=== PATIENT | female | born 1960 | race Caucasian/White ===

== ENCOUNTER 2019-08-25 16:51 | Emergency (ER) | payer SELFPAY ==
--- NOTE | 2019-08-25 19:22 | RAD ---
EXAM: Chest PA and lateral: HISTORY: Cough and congestion, x3 days COMPARISON: None FINDINGS: Heart: Normal cardiac silhouette Aorta: Atherosclerosis Pulmonary vessels: Normal Costophrenic angles: Costophrenic angles are clear. Lungs: Hyperinflation. Chronic parenchymal changes are suspected. No mass or consolidation. Bilateral nipple shadows are noted. Pneumothorax: No pneumothorax Osseous structures: No osseous abnormalities IMPRESSION: Hyperinflation with presumed chronic parenchymal changes.
== END 2019-08-25 20:24 | disposition home or self-care (01) ==
LOC: ERS 16:51
DX: J06.9 Acute upper respiratory infection, unspecified (principal)
CPT/HCPCS: 71046; 87804

== ENCOUNTER 2020-07-04 19:29 | Emergency (ER) | payer SELFPAY | END 2020-07-04 20:16 | disposition home or self-care (01) | LOC: ERS 19:29 | DX: R05 Cough (principal) | CPT/HCPCS: 99283 ==

== ENCOUNTER 2020-08-06 00:31 | Inpatient (IN) | payer BC, SELFPAY ==
--- NOTE | 2020-08-06 04:08 | PDOC.HHP ---
Hospitalist HPI - History of Present Illness History of Present Illness: ADMISSION DATE: 08/06/2020 TIME OF ASSESSMENT: 4:15 AM PRIMARY CARE PHYSICIAN: Rohit, city call CHIEF COMPLAINT: Shortness of breath, cough HPI: Patient is a 59-year-old female with no significant past medical history. She states she has been sick on and off since [facility] and has had to miss the last week of work at the [employer]. She has had a persistent cough that has consistently gotten worse over the past 48 hours along with increasing shortness of breath. No medications have been taken at home. On initial evaluation at the ER she was 70% on room air and tachypneic. Patient endorses fatigue, rhinorrhea, sore throat, headache. Denies chest pain or GI/ symptoms. Patient was a daily smoker but quit at [facility]. ED COURSE: Vital Signs: Blood pressure 114/66, pulse 110, respiratory rate 20, temp 98.9, no pain, 100% on 1 L Today in the ER they completed a chest x-ray, chest CT, EKG, lab work. She was administered normal saline, Lovenox 40 mg, azithromycin 500 mg IV, ceftriaxone 2 g IV, dexamethasone 10 mg IV. PAST MEDICAL HISTORY: No past medical history PAST SURGICAL HISTORY: No surgical history SOCIAL HISTORY: Patient currently lives at home with family. 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 She is a former tobacco user, she quit a month ago. She drinks socially once a month. She denies drug use FAMILY HISTORY: None ALLERGIES: No known drug allergies CURRENT MEDICATIONS: No home medications Hospitalist ROS - Review of Systems Constitutional: reports: weakness ENT: reports: nose congestion Respiratory: reports: cough, shortness of breath, SOB with excertion All other systems reviewed; all pertinent +/- noted in HPI/Subj - Exam General Appearance: ill appearing Eye: PERRL ENT: normocephalic atraumatic Heart: RRR, no murmur, no gallops, no rubs Respiratory: rhonchi Gastrointestinal: soft, non-tender, non-distended, normal bowel sounds, no palpable masses Extremities: no edema Neurological: no focal deficits Psychiatric: A&O x 3 Hospitalist Results - Labs Lab results: Laboratory Tests 08/05/20 08/05/20 08/05/20 15:44 15:44 15:44 WBC 6.4 RBC 4.87 Hgb 13.3 Hct 43.5 D-Dimer Sodium 138 Potassium 4.8 Chloride 97 L Carbon Dioxide 35 H Anion Gap 11 BUN 10 Creatinine 0.58 L Estimated GFR (MDRD) Greater than 90 Glucose 141 H Lactic Acid Creatine Kinase 40 Troponin I C-Reactive Protein 0.77 H B-Natriuretic Peptide Influenza A RNA INAAT Influenza B RNA INAAT SARS-CoV-2 Rap RNA(RT-PCR) 08/05/20 08/05/20 08/05/20 15:44 15:44 15:44 WBC RBC Hgb Hct D-Dimer Sodium Potassium Chloride Carbon Dioxide Anion Gap BUN Creatinine Estimated GFR (MDRD) Glucose Lactic Acid 2.0 Creatine Kinase Troponin I Less than 0.010 C-Reactive Protein B-Natriuretic Peptide 340.1 H Influenza A RNA INAAT Influenza B RNA INAAT SARS-CoV-2 Rap RNA(RT-PCR) 08/05/20 08/05/20 15:44 16:20 WBC RBC Hgb Hct D-Dimer 1.40 H Sodium Potassium Chloride Carbon Dioxide Anion Gap BUN Creatinine Estimated GFR (MDRD) Glucose Lactic Acid Creatine Kinase Troponin I C-Reactive Protein B-Natriuretic Peptide Influenza A RNA INAAT Not Detected Influenza B RNA INAAT Not Detected SARS-CoV-2 Rap RNA(RT-PCR) Not Detected - EKG Interpretation EKG: Sinus tachycardia with inverted T waves 112 bpm - Radiology Interpretation CT scan - chest Status: report reviewed by me Additional Comment: Impression: No evidence of pulmonary masses Very small bilateral pleural effusions Evidence of interstitial lung disease with nonspecific subpleural nodules. Increased density of the mediastinal fat may be related to fibrosis as well. No mass evident. Chest x-ray Status: report reviewed by me Additional Comment: Impression: 1. Mild increased linear densities at each lung base with slight patchy density left lung base. Findings could be related either mild asymmetric pulmonary edema or infectious process. 2. Mild cardiomegaly. Hospitalist H&P A/P - Plan Plan: Hypoxia with acute respiratory failure Continue oxygen and attempt to wean off when able Influenza and Covid swab negative COPD exacerbation versus Pneumonia Continue azithromycin and ceftriaxone Continue steroid at this time Awaiting procalcitonin level Scheduled duo nebs Follow labs in a.m. History of tobacco abuse Patient quit smoking last month Nicotine patch available if needed VTE prophylaxis in place with SCDs CODE STATUS: Full Surrogate decision-maker is her mother
[2020-08-06] MEDS ORDERED: Acetaminophen 325 MG TAB PO PRN (04:12)
[2020-08-06] MEDS ORDERED: guaiFENesin 100 MG/5 ML UDCUP PO PRN (04:46)
[2020-08-06] MEDS: Nicotine 14 MG PATCH TD SCH (06:09)
[2020-08-06 06:58] LABS: #Lymphocytes 1.2 thou/uL (1.20-3.40); #Monocytes 0.6 thou/uL (0.11-0.59); %Basophils 0.6 % (0.0-1.0); %Eosinophils 0.2 % (0.0-10.0); %Lymphocytes 17.8 % (21.0-51.0); %Monocytes 8.6 % (0.0-10.0); %Neutrophils 72.8 % (42.0-75.0); Hemoglobin 13.6 g/dL (12.0-16.0); Mean Corpuscular HGB CONC 30.3 g/dL (32.0-36.0); Mean Corpuscular Volume 92.5 fL (78.0-98.0); Mean Platelet Volume 6.9 fL (7.4-10.4); Platelet Count 286 thou/uL (130-400); RBC Distribution Width 14.6 % (11.5-14.5); Red Blood Cell (RBC) Count 4.85 mill/uL (4.20-5.40); White Blood Cell (WBC) Count 6.9 thou/uL (4.8-10.8)
[2020-08-06 07:14] LABS: Anion Gap 12 mmol/L (10-20); BUN (Urea Nitrogen) 11 mg/dL (9.8-20.1); Calc. Creatinine Clearance 68 mL/min (70-130); Calcium 7.9 mg/dL (7.8-10.44); Carbon Dioxide 28 mmol/L (22-29); Chloride 107 mmol/L (98-107); Glucose 161 mg/dL (70-105); Potassium 4.9 mmol/L (3.5-5.1); Sodium 142 mmol/L (136-145)
[2020-08-06] MEDS: predniSONE 20 MG TAB PO SCH (08:18)
[2020-08-06] MEDS: Diabetic Tussin 200 MG/10 ML UDCUP PO PRN (08:18)
[2020-08-06] MEDS ORDERED: cefTRIAXone\\ROCEPHIN 1 GM in Sodium Chloride 0.9% 100 ML IVPB SCH (16:00)
[2020-08-06] MEDS ORDERED: Azithromycin 500 MG in Sodium Chloride 0.9% 250 ML 250 ML IVPB SCH (16:00)
--- NOTE | 2020-08-06 18:42 | PDOC.HOSPP ---
- Subjective Encounter Date: 08/06/20 Subjective: Feels better overall. Breathing more comfortably on the oxygen. Says she was never a significant smoker. Never smoked more than about 3 cigarettes/day. Has not smoked in several months. She does report about a 20 pound weight loss over the past year. - Objective Vital Signs & Weight: Vital Signs (12 hours) Temp Pulse Resp BP Pulse Ox 08/06/20 15:08 98.6 F 110 H 16 102/58 L 95 08/06/20 14:13 107 H 18 08/06/20 11:15 98.6 F 107 H 16 103/59 L 95 08/06/20 08:18 98.4 F 109 H 16 100/56 L 96 08/06/20 07:50 104 H 28 H Weight Admit Weight 95 lb 7 oz Weight 95 lb 7 oz I&O: 08/05/20 08/06/20 08/07/20 06:59 06:59 06:59 Intake Total 1310 Balance 1310 Result Diagrams: 08/06/20 06:46 08/06/20 06:46 Hospitalist ROS - Medication Medications: Active Medications Generic Name Dose Route Start Last Admin Trade Name Freq PRN Reason Stop Dose Admin Albuterol/Ipratropium 3 ml 08/06/20 07:00 08/06/20 14:13 Ipratropium/Albuterol Sulfate 3 Ml Neb NEB 3 ml [id number] JOSELITO Administration Guaifenesin 200 mg 08/06/20 06:38 08/06/20 08:18 Diabetic Tussin 200 Mg/10 Ml Udcup PO 200 mg Q4H PRN Administration Cough Ceftriaxone Sodium 1 gm/ 100 mls @ 200 mls/hr 08/06/20 16:00 08/06/20 15:08 Sodium Chloride IVPB 100 mls Q24HR JOSELITO Administration Azithromycin 500 mg/ Sodium 250 mls @ 250 mls/hr 08/06/20 16:00 08/06/20 15:08 Chloride IVPB 250 mls Q24HR JOSELITO Administration Nicotine 14 mg 08/06/20 04:15 08/06/20 06:09 Nicotine 14 Mg Patch TD Not Given Q24HR JOSELITO Prednisone 40 mg 08/06/20 09:00 08/06/20 08:18 Prednisone 20 Mg Tab PO 40 mg DAILY JOSELITO Administration - Exam General Appearance: NAD, awake alert General - other findings: Very thin. Heart: RRR, no murmur, no gallops, no rubs, normal peripheral pulses Respiratory: rales (Very minimal at the bases.) Respiratory - other findings: Slightly diminished on the left. Gastrointestinal: soft, non-tender, non-distended, normal bowel sounds, no palpable masses, no hepatomegaly, no splenomegaly, no bruit Extremities: no cyanosis, no clubbing, no edema Skin: normal turgor Neurological: no focal deficits Musculoskeletal: normal tone, normal strength, diffuse muscle atrophy (Mild) Psychiatric: normal affect, normal behavior, A&O x 3 Hosp A/P (1) Acute respiratory failure with hypoxia Code(s): J96.01 - ACUTE RESPIRATORY FAILURE WITH HYPOXIA Status: Acute (2) Pulmonary hypertension Code(s): I27.20 - PULMONARY HYPERTENSION, UNSPECIFIED Status: Acute - Plan This patient is a 59-year-old female who has been experiencing progressive shortness of breath for 5 to 6 weeks. She ultimately got to the point where she could no longer function at work and presented to the hospital. She had a CTA of the chest which showed some interstitial prominence of the lungs. It also appears to show a small left pleural effusion. There is no evidence of infiltrate. No evidence of PE. There was some concern for mediastinal fibrosis. Echocardiogram was obtained which reveals evidence of pulmonary hypertension. There are elevated pulmonary artery pressures as well as enlarged right ventricle. EF is 65 to 70%. Patient reports that she has never been a significant smoker. Concerning for the possibility of interstitial lung disease. Will discontinue antibiotics. Continue steroids and nebulizers. Given her tachycardia will change it to as needed. Consult pulmonology.
[2020-08-07] MEDS: Nicotine 14 MG PATCH TD SCH (01:59)
[2020-08-07 04:32] LABS: Anion Gap 10 mmol/L (10-20); BUN (Urea Nitrogen) 13 mg/dL (9.8-20.1); Calc. Creatinine Clearance 84 mL/min (70-130); Calcium 7.6 mg/dL (7.8-10.44); Carbon Dioxide 33 mmol/L (22-29); Chloride 103 mmol/L (98-107); Glucose 102 mg/dL (70-105); Potassium 4.6 mmol/L (3.5-5.1); Sodium 141 mmol/L (136-145)
[2020-08-07 05:02] LABS: Band 9 % (5-11); Hemoglobin 11.9 g/dL (12.0-16.0); Lymphocytes 27 % (21-51); MDiff Complete? YES; Mean Corpuscular HGB CONC 30.1 g/dL (32.0-36.0); Mean Corpuscular Hemoglobin 27.9 pg (27.0-31.0); Mean Corpuscular Volume 92.8 fL (78.0-98.0); Mean Platelet Volume 7.3 fL (7.4-10.4); Monocytes 14 % (0-10); Neutrophil 50 % (42-75); Platelet Count 262 thou/uL (130-400); RBC Distribution Width 14.4 % (11.5-14.5); Red Blood Cell (RBC) Count 4.26 mill/uL (4.20-5.40); White Blood Cell (WBC) Count 6.3 thou/uL (4.8-10.8)
[2020-08-07 07:00] LABS: Amphetamine Not Detected (NotDetected); Barbiturates Screen Not Detected (NotDetected); Benzodiazepine Screen Not Detected (NotDetected); Cocaine Metabolite Screen Not Detected (NotDetected); Medtox Control Line Valid? VALID (VALID); Medtox Reader # READER 4; Methadone Not Detected (NotDetected); Methamphetamine Not Detected (NotDetected); Opiate Screen Not Detected (NotDetected); Oxycodone Screen Not Detected (NotDetected); Phencyclidine (PCP) Not Detected (NotDetected); THC/Cannabinoid Screen Not Detected (NotDetected); Tricyclic Screen Not Detected (NotDetected)
[2020-08-07] MEDS: predniSONE 20 MG TAB PO SCH (08:32)
[2020-08-07] MEDS: Enoxaparin Sodium 40 MG/0.4 ML SYRINGE SC SCH (08:32)
[2020-08-07 10:02] LABS: Thyroid Stimulating Hormone 1.4266 uIU/mL (0.35-4.94)
--- NOTE | 2020-08-07 14:06 | CON ---
DATE OF CONSULTATION: HISTORY OF PRESENT ILLNESS: Denise Stevenson is a 59-year-old female from [place], who has no primary care physician. She is smoking up to she says 3 to 4 cigarettes a day low-grade coughing, shortness of breath. She is cachectic. Denies any previous history of TB, pneumonia, or bronchial asthma. Sats were low in the 70s, pulse 120 when she arrived in the ER. PAST MEDICAL HISTORY: Unremarkable for diabetes, hypertension. PREVIOUS SURGERIES: None. TOBACCO: Apparently, as noted. CHRONIC MEDICATIONS: None. REVIEW OF SYSTEMS: Ten-point negative. PHYSICAL EXAMINATION: GENERAL: She is cachectic female, 1+ ankle edema. VITAL SIGNS: Temperature 98, pulse 114, respiratory rate 16, sats 92% on 3 L, blood pressure 147/73. CHEST: Decreased breath sounds without any wheezing. CARDIAC: Normal S1, S2. No gallops. ABDOMEN: No masses. LABORATORY DATA: Thyroid function was normal. Lytes were normal. White count 6000, H and H 11 and 39, platelet count was normal. Drug screen was negative. CT angio shows bilateral pleural effusion, but no masses were seen. Minimal nodule, right lung of unknown significance. Echo shows normal EF, but evidence of pulmonary hypertension. IMPRESSION: 1. Respiratory failure, hypoxemia, bilateral pleural effusion, probable diastolic dysfunction. 2. Chronic obstructive pulmonary disease. 3. Cachexia. PLAN: I empirically start her on some antibiotics, neb treatments, and steroids. PT, supportive care when stable. Outpatient PFT. Consultation note, 70 minutes, 50% direct patient care. Job ID: [id number]
--- NOTE | 2020-08-07 17:23 | PDOC.HOSPP ---
- Subjective Encounter Date: 08/07/20 Subjective: Still feels about the same. Still short of breath. Cannot tell that she has had any significant improvement with the nebulizer treatments and steroids. - Objective Vital Signs & Weight: Vital Signs (12 hours) Temp Pulse Resp BP Pulse Ox 08/07/20 15:13 98.5 F 115 H 24 H 131/63 93 L 08/07/20 11:33 114 H 16 08/07/20 11:20 98.8 F 114 H 24 H 147/73 H 92 L 08/07/20 11:00 85 L 08/07/20 07:30 98.5 F 105 H 20 129/64 94 L Weight Admit Weight 95 lb 7 oz Weight 95 lb I&O: 08/06/20 08/07/20 08/08/20 06:59 06:59 06:59 Intake Total 1790 Output Total 200 Balance 1590 Result Diagrams: 08/07/20 03:37 08/07/20 03:37 Hospitalist ROS - Medication Medications: Active Medications Generic Name Dose Route Start Last Admin Trade Name Freq PRN Reason Stop Dose Admin Albuterol/Ipratropium 3 ml 08/07/20 13:00 08/07/20 13:52 Ipratropium/Albuterol Sulfate 3 Ml Neb NEB Not Given [id number] JOSELITO Enoxaparin Sodium 40 mg 08/07/20 09:00 08/07/20 08:32 Enoxaparin Sodium 40 Mg/0.4 Ml Syringe SC 40 mg 0900 JOSELITO Administration Guaifenesin 200 mg 08/06/20 06:38 08/06/20 08:18 Diabetic Tussin 200 Mg/10 Ml Udcup PO 200 mg Q4H PRN Administration Cough Nicotine 14 mg 08/06/20 04:15 08/07/20 01:59 Nicotine 14 Mg Patch TD Not Given Q24HR JOSELITO Prednisone 40 mg 08/06/20 09:00 08/07/20 08:32 Prednisone 20 Mg Tab PO 40 mg DAILY JSOELITO Administration - Exam General Appearance: NAD, awake alert Neck: no JVD Heart: RRR, no murmur, no gallops, no rubs, normal peripheral pulses Heart - other findings: Tachycardic Respiratory: no wheezes, no ronchi, no tachypnea, rales (Bibasilar, mild) Gastrointestinal: soft, non-tender, non-distended, normal bowel sounds, no palpable masses, no hepatomegaly, no splenomegaly, no bruit Extremities: 1+ LE edema Skin: normal turgor Neurological: no focal deficits Musculoskeletal: normal tone, normal strength, no muscle wasting Psychiatric: normal affect, normal behavior, A&O x 3 Hosp A/P (1) Acute respiratory failure with hypoxia Code(s): J96.01 - ACUTE RESPIRATORY FAILURE WITH HYPOXIA Status: Acute (2) Pulmonary hypertension Code(s): I27.20 - PULMONARY HYPERTENSION, UNSPECIFIED Status: Acute (3) Pleural effusion Code(s): J90 - PLEURAL EFFUSION, NOT ELSEWHERE CLASSIFIED Status: Acute (4) Tachycardia Code(s): R00.0 - TACHYCARDIA, UNSPECIFIED Status: Acute (5) Protein-calorie malnutrition, moderate Code(s): E44.0 - MODERATE PROTEIN-CALORIE MALNUTRITION Status: Acute (6) Abnormal CT scan, chest Code(s): R93.89 - ABNORMAL FINDINGS ON DX IMAGING OF OTH BODY STRUCTURES Status: Acute - Plan This patient is a 59-year-old female who has been experiencing progressive shortness of breath for 5 to 6 weeks. She ultimately got to the point where she could no longer function at work and presented to the hospital. She had a CTA of the chest which showed some interstitial prominence of the lungs. It also appears to show a small left pleural effusion. There is no evidence of infiltrate. No evidence of PE. There was some concern for mediastinal fibrosis. Echocardiogram was obtained which reveals evidence of pulmonary hypertension. There are elevated pulmonary artery pressures as well as enlarged right ventricle. EF is 65 to 70%. Patient reports that she has never been a significant smoker. Concerning for the possibility of interstitial lung disease. Acute hypoxic respiratory failure: She was initially started empirically on antibiotics and these were subsequently discontinued with no evidence of a specific infiltrate. Continue steroids and nebulizers. She was tachycardic and therefore her nebulizers were changed to as needed. Pulmonology consulted on 08/07/2020. Reviewed the case with Dr. Sutton. Diagnosis at this point still remains somewhat elusive but he suspects some diastolic dysfunction given her peripheral edema and pleural effusions. Continuing with steroids, nebulizers and he is resumed empiric antibiotics. Tachycardia: Initially concern it may be related to her nebulizer treatments. Ordered thyroid studies. Moderate protein calorie malnutrition: Patient does admit to having some weight loss. She has a generally low BMI. Abnormal CT chest: Interesting findings concerning for possible mediastinal fibrosis as well as some pulmonary fibrosis. Echocardiogram obtained with the results as above.
[2020-08-07] MEDS: Mometasone 200 MCG/Formoterol 5 MCG 120 PUFF INHALER INH SCH (18:47)
[2020-08-07] MEDS: Doxycycline 100 MG CAP PO SCH (20:01)
[2020-08-07] MEDS: Diabetic Tussin 200 MG/10 ML UDCUP PO PRN (20:01)
[2020-08-08 04:53] LABS: BUN (Urea Nitrogen) 13 mg/dL (9.8-20.1); Calc. Creatinine Clearance 82 mL/min (70-130); Calcium 7.7 mg/dL (7.8-10.44); Glucose 72 mg/dL (70-105)
[2020-08-08 05:04] LABS: Anion Gap 12 mmol/L (10-20); Carbon Dioxide 35 mmol/L (22-29); Chloride 99 mmol/L (98-107); Potassium 4.4 mmol/L (3.5-5.1); Sodium 142 mmol/L (136-145)
[2020-08-08] MEDS: Nicotine 14 MG PATCH TD SCH (05:26)
[2020-08-08 05:41] LABS: Band 11 % (5-11); Eosinophils 1 % (0-10); Hemoglobin 12.3 g/dL (12.0-16.0); Hypochromia SLIGHT = 6-15 cells (100X) (0-5/hpf); Lymphocytes 19 % (21-51); MDiff Complete? YES; Mean Corpuscular HGB CONC 29.1 g/dL (32.0-36.0); Mean Corpuscular Hemoglobin 26.9 pg (27.0-31.0); Mean Corpuscular Volume 92.3 fL (78.0-98.0); Mean Platelet Volume 7.5 fL (7.4-10.4); Monocytes 9 % (0-10); Neutrophil 60 % (42-75); Platelet Count 254 thou/uL (130-400); RBC Distribution Width 14.2 % (11.5-14.5); Red Blood Cell (RBC) Count 4.57 mill/uL (4.20-5.40); White Blood Cell (WBC) Count 6.5 thou/uL (4.8-10.8)
[2020-08-08] MEDS: Mometasone 200 MCG/Formoterol 5 MCG 120 PUFF INHALER INH SCH ×2 (07:18→18:22)
[2020-08-08] MEDS: predniSONE 20 MG TAB PO SCH (08:40)
[2020-08-08] MEDS: Enoxaparin Sodium 40 MG/0.4 ML SYRINGE SC SCH (08:40)
[2020-08-08] MEDS: Doxycycline 100 MG CAP PO SCH ×2 (08:40→20:06)
--- NOTE | 2020-08-08 11:06 | PRG ---
DATE OF SERVICE: 08/08/2020 OBJECTIVE: VITAL SIGNS: Temperature is 98, pulse on 3 L, and blood pressure . GENERAL: She is awake, alert, and responsive, apparently less short of breath. CHEST: No wheezing. No crackles. CARDIAC: Normal S1 and S2. No gallops. ABDOMEN: No masses. IMPRESSION: Respiratory failure, smoker, pleural effusion, and pulmonary hypertension. PLAN: Continue antibiotics, steroids, supportive care, and PT. We will follow. Job ID: [id number]
--- NOTE | 2020-08-08 15:07 | PDOC.HOSPP ---
- Subjective Encounter Date: 08/08/20 non-verbal Subjective: She reports she is actually feeling somewhat better today. Feels like she is breathing more comfortably. - Objective Vital Signs & Weight: Vital Signs (12 hours) Temp Pulse Resp BP Pulse Ox 08/08/20 13:44 104 H 18 96 08/08/20 11:37 98.1 F 102 H 20 134/69 98 08/08/20 07:58 98.0 F 107 H 16 138/68 92 L 08/08/20 07:17 96 14 96 08/08/20 03:33 98.9 F 106 H 18 118/56 L 96 Weight Admit Weight 95 lb 7 oz Weight 93 lb 8 oz I&O: 08/07/20 08/08/20 08/09/20 06:59 06:59 06:59 Intake Total 1790 1440 Output Total 200 1300 Balance 1590 140 Result Diagrams: 08/08/20 04:02 08/08/20 04:02 Hospitalist ROS - Medication Medications: Active Medications Generic Name Dose Route Start Last Admin Trade Name Freq PRN Reason Stop Dose Admin Albuterol/Ipratropium 3 ml 08/07/20 13:00 08/08/20 13:44 Ipratropium/Albuterol Sulfate 3 Ml Neb NEB 3 ml [id number] JOSELITO Administration Doxycycline Hyclate 100 mg 08/07/20 21:00 08/08/20 08:40 Doxycycline 100 Mg Cap PO 08/17/20 21:01 100 mg BID JOSELITO Administration Enoxaparin Sodium 40 mg 08/07/20 09:00 08/08/20 08:40 Enoxaparin Sodium 40 Mg/0.4 Ml Syringe SC 40 mg 0900 JOSELITO Administration Guaifenesin 200 mg 08/06/20 06:38 08/07/20 20:01 Diabetic Tussin 200 Mg/10 Ml Udcup PO 200 mg Q4H PRN Administration Cough Mometasone Furoate/Formoterol Fumar 2 puff 08/07/20 18:30 08/08/20 07:18 Mometasone 200 Mcg/Formoterol 5 Mcg 120 Puff Inhaler INH 2 puff BID-RT JOSELITO Administration Nicotine 14 mg 08/06/20 04:15 08/08/20 05:26 Nicotine 14 Mg Patch TD Not Given Q24HR JOSELITO Prednisone 40 mg 08/06/20 09:00 08/08/20 08:40 Prednisone 20 Mg Tab PO 40 mg DAILY JOSELITO Administration - Exam General Appearance: NAD, awake alert Heart: RRR, no murmur, no gallops, no rubs, normal peripheral pulses Heart - other findings: There is edema pitting in the right ankle and the sacral area significantly Respiratory: no wheezes, no ronchi Respiratory - other findings: Minimal basilar rales Gastrointestinal: soft, non-tender, non-distended, normal bowel sounds, no palpable masses, no hepatomegaly, no splenomegaly, no bruit Extremities: no cyanosis, no clubbing, 2+ LE edema (On the right ankle) Neurological: no focal deficits Musculoskeletal: normal tone, normal strength, no muscle wasting, diffuse muscle atrophy Psychiatric: normal affect, normal behavior, A&O x 3 Hosp A/P (1) Acute respiratory failure with hypoxia Code(s): J96.01 - ACUTE RESPIRATORY FAILURE WITH HYPOXIA Status: Acute (2) Pulmonary hypertension Code(s): I27.20 - PULMONARY HYPERTENSION, UNSPECIFIED Status: Acute (3) Pleural effusion Code(s): J90 - PLEURAL EFFUSION, NOT ELSEWHERE CLASSIFIED Status: Acute (4) Tachycardia Code(s): R00.0 - TACHYCARDIA, UNSPECIFIED Status: Acute (5) Protein-calorie malnutrition, moderate Code(s): E44.0 - MODERATE PROTEIN-CALORIE MALNUTRITION Status: Acute (6) Abnormal CT scan, chest Code(s): R93.89 - ABNORMAL FINDINGS ON DX IMAGING OF OTH BODY STRUCTURES Status: Acute (7) Cor pulmonale Code(s): I27.81 - COR PULMONALE (CHRONIC) Status: Acute - Plan This patient is a 59-year-old female who has been experiencing progressive shortness of breath for 5 to 6 weeks. She ultimately got to the point where she could no longer function at work and presented to the hospital. She had a CTA of the chest which showed some interstitial prominence of the lungs. It also appears to show a small left pleural effusion. There is no evidence of infiltrate. No evidence of PE. There was some concern for mediastinal fibrosis. Echocardiogram was obtained which reveals evidence of pulmonary hypertension. There are elevated pulmonary artery pressures as well as enlarged right ventricle. EF is 65 to 70%. Patient reports that she has never been a significant smoker. Concerning for the possibility of interstitial lung disease. Acute hypoxic respiratory failure: She was initially started empirically on antibiotics and these were subsequently discontinued with no evidence of a specific infiltrate. Continue steroids and nebulizers. She was tachycardic and therefore her nebulizers were changed to as needed. Pulmonology consulted on 08/07/2020. Reviewed the case with Dr. Sutton. Diagnosis at this point still remains somewhat elusive but he suspects some diastolic dysfunction given her peripheral edema and pleural effusions. Continuing with steroids, nebulizers and he is resumed empiric antibiotics. She has significant edema in her ankles and now dependent edema in the sacrum which is fairly prominent. Concerning for right heart failure and cor pulmonale from her significant pulmonary hypertension. BNP was slightly elevated. Will recheck in the morning. Tachycardia: Initially concern it may be related to her nebulizer treatments. Ordered thyroid studies which were normal. Moderate protein calorie malnutrition: Patient does admit to having some weight loss. She has a generally low BMI. Abnormal CT chest: Interesting findings concerning for possible mediastinal fibrosis as well as some pulmonary fibrosis. Echocardiogram obtained with the results as above.
[2020-08-08] MEDS: Diabetic Tussin 200 MG/10 ML UDCUP PO PRN (20:06)
[2020-08-09] MEDS: Nicotine 14 MG PATCH TD SCH (04:00)
[2020-08-09] MEDS: Mometasone 200 MCG/Formoterol 5 MCG 120 PUFF INHALER INH SCH ×2 (07:56→18:38)
[2020-08-09] MEDS: predniSONE 20 MG TAB PO SCH (09:07)
[2020-08-09] MEDS: Enoxaparin Sodium 40 MG/0.4 ML SYRINGE SC SCH (09:07)
[2020-08-09] MEDS: Doxycycline 100 MG CAP PO SCH ×2 (09:07→21:03)
--- NOTE | 2020-08-09 11:42 | PRG ---
DATE OF SERVICE: SUBJECTIVE: She is doing well this morning. She is less short of breath. OBJECTIVE: VITAL SIGNS: Temperature 98, pulse 108, respirations 20, saturations 99 on 2 L, blood pressure 130/68. CHEST: No wheezing. No crackles. CARDIAC: Normal S1, S2. ABDOMEN: No masses. IMPRESSION: Chronic obstructive pulmonary disease, pleural effusion, probably diastolic dysfunction. PLAN: X-ray at baseline. She can probably be discharged home any time. Follow up in the office at a later time. Job ID: [id number]
--- NOTE | 2020-08-09 12:21 | RAD ---
CHEST 2 VIEWS: HISTORY: COPD. COMPARISON: Radiograph 08/05/2020. FINDINGS: Enlarging left moderate layering pleural effusion. Small right layering pleural effusion. Abnormal right upper lobe pulmonary nodule as well as a right middle lobe nodule. IMPRESSION: 1. Enlarging pleural effusions. 2. Right middle and right upper lobe nodules concerning for malignancy. Close follow up CT after res olution of symptoms recommended. CODE: LN POS: [facility]
--- NOTE | 2020-08-09 14:43 | RAD ---
EXAM: XR Chest 1 View Portable PROVIDED CLINICAL HISTORY: Postthoracentesis, pleural effusion COMPARISON: 08/09/2020 11:48 AM FINDINGS: Interval reduction in the degree of left pleural opacity, compatible with provided clinical history o f interval thoracentesis. There is no evidence for pneumothorax or additional significant interval change. IMPRESSION: As above.
[2020-08-09 15:10] LABS: RBC Count-Automated (BF) 169 /cu.mm; WBC/Nucleated-Auto (BF) 657 uL
[2020-08-09 15:26] LABS: BF Color Yellow; Body Fluid Source Thoracentesis Fluid; Clarity Hazy (Clear); Tube # 2
[2020-08-09 15:30] LABS: BF Segmented Neutrophils 10 %; Cell Count Non Hematic 50 %; Lymphocytes 40 %
[2020-08-09 15:40] LABS: Fluid, Triglycerides Less than 11 mg/dL (Not Available); Pleural Fluid, Amylase Less than 30 U/L (Not Available); Pleural Fluid, Glucose 130 mg/dL; Pleural Fluid, LDH 85 U/L (Not Available); Pleural Fluid, Protein Less than 1.0 g/dL
--- NOTE | 2020-08-09 18:09 | PDOC.HOSPP ---
- Subjective Encounter Date: 08/09/20 Subjective: Patient reports she continues to feel slightly better. No cough. - Objective Vital Signs & Weight: Vital Signs (12 hours) Temp Pulse Resp BP Pulse Ox 08/09/20 16:12 98 F 109 H 27 H 140/70 100 08/09/20 13:40 107 H 20 96 08/09/20 12:08 98.0 F 106 H 19 142/74 H 97 08/09/20 07:56 108 H 20 95 08/09/20 07:23 98 08/09/20 07:16 98.4 F 98 20 136/68 98 Weight Admit Weight 95 lb 7 oz Weight 94 lb I&O: 08/08/20 08/09/20 08/10/20 06:59 06:59 06:59 Intake Total 1440 1080 Output Total 1300 550 Balance 140 530 Result Diagrams: 08/08/20 04:02 08/08/20 04:02 Hospitalist ROS - Medication Medications: Active Medications Generic Name Dose Route Start Last Admin Trade Name Freq PRN Reason Stop Dose Admin Albuterol/Ipratropium 3 ml 08/07/20 13:00 08/09/20 13:40 Ipratropium/Albuterol Sulfate 3 Ml Neb NEB 3 ml [id number] JOSELITO Administration Doxycycline Hyclate 100 mg 08/07/20 21:00 08/09/20 09:07 Doxycycline 100 Mg Cap PO 08/17/20 21:01 100 mg BID JOSELITO Administration Enoxaparin Sodium 40 mg 08/07/20 09:00 08/09/20 09:07 Enoxaparin Sodium 40 Mg/0.4 Ml Syringe SC 40 mg 0900 JOSELITO Administration Guaifenesin 200 mg 08/06/20 06:38 08/08/20 20:06 Diabetic Tussin 200 Mg/10 Ml Udcup PO 200 mg Q4H PRN Administration Cough Mometasone Furoate/Formoterol Fumar 2 puff 08/07/20 18:30 08/09/20 07:56 Mometasone 200 Mcg/Formoterol 5 Mcg 120 Puff Inhaler INH 2 puff BID-RT JOSELITO Administration Nicotine 14 mg 08/06/20 04:15 08/09/20 04:00 Nicotine 14 Mg Patch TD Not Given Q24HR JOSELITO Prednisone 40 mg 08/06/20 09:00 08/09/20 09:07 Prednisone 20 Mg Tab PO 40 mg DAILY JOSELITO Administration - Exam General Appearance: NAD, awake alert Heart: RRR, no murmur, no gallops, no rubs, normal peripheral pulses Respiratory: no wheezes, no ronchi, rales (Scattered mild bilateral rales. Slightly worse at the bases.) Gastrointestinal: soft, non-tender, non-distended, normal bowel sounds, no palpable masses, no hepatomegaly, no splenomegaly, no bruit Extremities: no cyanosis, no clubbing, no edema Skin: normal turgor Neurological: no focal deficits Musculoskeletal: normal tone, normal strength, no muscle wasting, diffuse muscle atrophy (Mild) Psychiatric: normal affect, normal behavior, A&O x 3 Hosp A/P (1) Acute respiratory failure with hypoxia Code(s): J96.01 - ACUTE RESPIRATORY FAILURE WITH HYPOXIA Status: Acute (2) Pulmonary hypertension Code(s): I27.20 - PULMONARY HYPERTENSION, UNSPECIFIED Status: Acute (3) Pleural effusion Code(s): J90 - PLEURAL EFFUSION, NOT ELSEWHERE CLASSIFIED Status: Acute (4) Tachycardia Code(s): R00.0 - TACHYCARDIA, UNSPECIFIED Status: Acute (5) Protein-calorie malnutrition, moderate Code(s): E44.0 - MODERATE PROTEIN-CALORIE MALNUTRITION Status: Acute (6) Abnormal CT scan, chest Code(s): R93.89 - ABNORMAL FINDINGS ON DX IMAGING OF OTH BODY STRUCTURES Status: Acute (7) Cor pulmonale Code(s): I27.81 - COR PULMONALE (CHRONIC) Status: Acute - Plan This patient is a 59-year-old female who has been experiencing progressive s hortness of breath for 5 to 6 weeks. She ultimately got to the point where she could no longer function at work and presented to the hospital. She had a CTA of the chest which showed some interstitial prominence of the lungs. It also appears to show a small left pleural effusion. There is no evidence of infiltrate. No evidence of PE. There was some concern for mediastinal fibrosis. Echocardiogram was obtained which reveals evidence of pulmonary hypertension. There are elevated pulmonary artery pressures as well as enlarged right ventricle. EF is 65 to 70%. Patient reports that she has never been a significant smoker. Concerning for the possibility of interstitial lung disease. Acute hypoxic respiratory failure: She was initially started empirically on antibiotics and these were subsequently discontinued with no evidence of a specific infiltrate. Continue steroids and nebulizers. She was tachycardic and therefore her nebulizers were changed to as needed. Pulmonology consulted on 08/07/2020. Reviewed the case with Dr. Sutton. Diagnosis at this point still remains somewhat elusive but he suspects some diastolic dysfunction given her peripheral edema and pleural effusions. Continuing with steroids, nebulizers and he is resumed empiric antibiotics. She has significant edema in her ankles and now dependent edema in the sacrum which is fairly prominent. Concerning for right heart failure and cor pulmonale from her significant pulmonary hypertension. BNP was slightly elevated. Repeat actually showed some improvement. On 08/09/2020 pulmonology note indicated the patient was stable to go home however in the afternoon it appears that she had a thoracentesis to the relatively small pleural effusion. Chemistries on that would suggest that is transudate. This is consistent with some of her other peripheral edema. Will check UA for p ossible nephrotic syndrome. Tachycardia: Initially concern it may be related to her nebulizer treatments. Ordered thyroid studies which were normal. Moderate protein calorie malnutrition: Patient does admit to having some weight loss. She has a generally low BMI. Abnormal CT chest: Interesting findings concerning for possible mediastinal fibrosis as well as some pulmonary fibrosis. Echocardiogram obtained with the results as above. Reviewed with CV surgery. No evidence of significant stenosis or severe fibrosis. Disposition: Patient likely can be discharged however, she will require home oxygen as her room air oxygen saturation on 08/09/2020 is still at 87%. Unfortunately the patient has no financial resources to obtain the oxygen and all of the [employer] companies are currently out of oxygen concentrators due to Covid patients.
[2020-08-09] MEDS: Diabetic Tussin 200 MG/10 ML UDCUP PO PRN (21:03)
[2020-08-10 01:24] LABS: Bacteria/HPF None Seen HPF (None Seen); Bilirubin Negative (Negative); Blood, Urine Negative (Negative); Clarity Turbid (Clear); Glucose, Urine (Dipstick) Normal (Negative); Ketone, Urine Negative (Negative); Leukocyte 75 Leu/uL (Negative); Nitrite Negative (Negative); Protein, Urine (Dipstick) Negative (Neg-Trace); Specific Gravity, Urine 1.013 (1.002-1.036); Urobilinogen Normal mg/dL (Less than 2); WBC/HPF 21-50 HPF (0-3)
[2020-08-10] MEDS: Nicotine 14 MG PATCH TD SCH (03:55)
--- NOTE | 2020-08-10 07:17 | OP ---
DATE OF PROCEDURE: 08/09/2020 PROCEDURE PERFORMED: Thoracentesis. INDICATION: Pleural effusion. DESCRIPTION OF PROCEDURE: After informed consent, the patient sitting upright in bed, the left posterior thorax was cleaned with chlorhexidine and 1% Xylocaine was infiltrated into the left 10th intercostal space in the midscapular line. Pleural cavity was entered in. About 10 mL of slightly pale yellow fluid was removed. Thereafter, using an 8-Uzbek catheter and a vacuum bottle, 450 mL of fluid was removed without difficulty. Pleural fluid was sent for appropriate studies including cytology. The patient otherwise tolerated the procedure well. Job ID: [id number]
[2020-08-10] MEDS: predniSONE 20 MG TAB PO SCH (08:54)
[2020-08-10] MEDS: Doxycycline 100 MG CAP PO SCH ×2 (08:54→20:18)
[2020-08-10] MEDS: Enoxaparin Sodium 40 MG/0.4 ML SYRINGE SC SCH (08:55)
[2020-08-10] MEDS ORDERED: predniSONE 20 MG TAB PO SCH (10:45)
--- NOTE | 2020-08-10 11:09 | PRG ---
DATE OF SERVICE: 08/10/2020 SUBJECTIVE: She is better. OBJECTIVE: VITAL SIGNS: Temperature 99, pulse 104, respiratory rate 16, sats 96% on 2 L, blood pressure 139/77. She is status post thoracentesis. CHEST: Decreased breath sounds. No wheezing. CARDIAC: Normal S1, S2. ABDOMEN: No masses. ASSESSMENT AND PLAN: Chronic obstructive pulmonary disease, pleural effusion, appears to be a transudate with predominantly lymphocytes. Await Cytology. She probably can be discharged home with tapering dose of steroids over the course of 2 weeks. Follow up with the primary care doctor. Job ID: [id number]
[2020-08-10] MEDS: Mometasone 200 MCG/Formoterol 5 MCG 120 PUFF INHALER INH SCH ×2 (13:51→19:20)
--- NOTE | 2020-08-10 17:36 | PDOC.HOSPP ---
- Subjective Encounter Date: 08/10/20 Subjective: Continues to feel better in general. Feels like her breathing has improved. - Objective Vital Signs & Weight: Vital Signs (12 hours) Temp Pulse Resp BP BP Pulse Ox 08/10/20 15:35 98.8 F 115 H 16 137/65 94 L 08/10/20 13:51 111 H 18 95 08/10/20 11:35 99.4 F 111 H 16 146/72 H 94 L 08/10/20 08:50 99.0 F 104 H 16 139/77 96 Weight Admit Weight 95 lb 7 oz Weight 92 lb 9.6 oz I&O: 08/09/20 08/10/20 08/11/20 06:59 06:59 06:59 Intake Total 1080 1320 Output Total 550 825 Balance 530 495 Result Diagrams: 08/08/20 04:02 08/08/20 04:02 Hospitalist ROS - Medication Medications: Active Medications Generic Name Dose Route Start Last Admin Trade Name Freq PRN Reason Stop Dose Admin Albuterol/Ipratropium 3 ml 08/07/20 13:00 08/10/20 13:51 Ipratropium/Albuterol Sulfate 3 Ml Neb NEB 3 ml [id number] JOSELITO Administration Doxycycline Hyclate 100 mg 08/07/20 21:00 08/10/20 08:54 Doxycycline 100 Mg Cap PO 08/17/20 21:01 100 mg BID JOSELITO Administration Enoxaparin Sodium 40 mg 08/07/20 09:00 08/10/20 08:55 Enoxaparin Sodium 40 Mg/0.4 Ml Syringe SC 40 mg 0900 JOSELITO Administration Guaifenesin 200 mg 08/06/20 06:38 08/09/20 21:03 Diabetic Tussin 200 Mg/10 Ml Udcup PO 200 mg Q4H PRN Administration Cough Mometasone Furoate/Formoterol Fumar 2 puff 08/07/20 18:30 08/10/20 13:51 Mometasone 200 Mcg/Formoterol 5 Mcg 120 Puff Inhaler INH Not Given BID-RT JOSELITO Nicotine 14 mg 08/06/20 04:15 08/10/20 03:55 Nicotine 14 Mg Patch TD Not Given Q24HR JOSELITO - Exam General Appearance: NAD, awake alert General - other findings: Generally very thin. Heart: RRR, no murmur, no gallops, no rubs, normal peripheral pulses Heart - other findings: Tachycardia Respiratory: no wheezes, no ronchi, normal chest expansion, no tachypnea, normal percussion, rales (Basis) Gastrointestinal: soft, non-tender, non-distended, normal bowel sounds, no palpable masses, no hepatomegaly, no splenomegaly, no bruit Extremities: no cyanosis, no clubbing, no edema Skin: normal turgor Neurological: no focal deficits Musculoskeletal: normal tone, normal strength, diffuse muscle atrophy (Mild) Psychiatric: normal affect, normal behavior, A&O x 3 Hosp A/P (1) Acute respiratory failure with hypoxia Code(s): J96.01 - ACUTE RESPIRATORY FAILURE WITH HYPOXIA Status: Acute (2) Pulmonary hypertension Code(s): I27.20 - PULMONARY HYPERTENSION, UNSPECIFIED Status: Acute (3) Pleural effusion Code(s): J90 - PLEURAL EFFUSION, NOT ELSEWHERE CLASSIFIED Status: Acute (4) Tachycardia Code(s): R00.0 - TACHYCARDIA, UNSPECIFIED Status: Acute (5) Protein-calorie malnutrition, moderate Code(s): E44.0 - MODERATE PROTEIN-CALORIE MALNUTRITION Status: Acute (6) Abnormal CT scan, chest Code(s): R93.89 - ABNORMAL FINDINGS ON DX IMAGING OF OTH BODY STRUCTURES Status: Acute (7) Cor pulmonale Code(s): I27.81 - COR PULMONALE (CHRONIC) Status: Acute - Plan This patient is a 59-year-old female who has been experiencing progressive shortness of breath for 5 to 6 weeks. She ultimately got to the point where she could no longer function at work and presented to the hospital. She had a CTA of the chest which showed some interstitial prominence of the lungs. It also appears to show a small left pleural effusion. There is no evidence of infiltrate. No evidence of PE. There was some concern for mediastinal fibrosis. Echocardiogram was obtained which reveals evidence of pulmonary hypertension. There are elevated pulmonary artery pressures as well as enlarged right ventricle. EF is 65 to 70%. Patient reports that she has never been a significant smoker. Concerning for the possibility of interstitial lung disease. Acute hypoxic respiratory failure: She was initially started empirically on antibiotics and these were subsequently discontinued with no evidence of a specific infiltrate. Continue steroids and nebulizers. She was tachycardic and therefore her nebulizers were changed to as needed. Pulmonology consulted on 08/07/2020. Reviewed the case with Dr. Sutton. Diagnosis at this point still remains somewhat elusive but he suspects some diastolic dysfunction given her peripheral edema and pleural effusions. Continuing with steroids, nebulizers and he is resumed empiric antibiotics. She has significant edema in her ankles and now dependent edema in the sacrum which is fairly prominent. Concerning for right heart failure and cor pulmonale from her significant pulmonary hypertension. BNP was slightly elevated. Repeat actually showed some improvement. On 08/09/2020 pulmonology note indicated the patient was stable to go home however in the afternoon it appears that she had a thoracentesis to the relatively small pleural effusion. Chemistries on that would suggest that is transudate. This is consistent with some of her other peripheral edema. UA was evaluated negative for nephrotic syndrome. Pleural effusion: Relatively small. Thoracentesis performed on 08/09/2020. Transudate of fluid with some lymphocytes. Dr. Sutton indicated he would follow-up on the path. Tachycardia: Initially concern it may be related to her nebulizer treatments. Ordered thyroid studies which were normal. May benefit from a beta-arianna however will need to get her off the nebulizers for a time and see if this settles down. Do not want to initiate beta-blockers at this time given the pulmonary issues. Moderate protein calorie malnutrition: Patient does admit to having some weight loss. She has a generally low BMI. Appeared to have adequate p.o. intake while admitted. Abnormal CT chest: Interesting findings concerning for possible mediastinal fibrosis as well as some pulmonary fibrosis. Echocardiogram obtained with the results as above. Reviewed with CV surgery. No evidence of significant stenosis or severe fibrosi s. Disposition: Patient likely can be discharged however, she will require home oxygen as her room air oxygen saturation on 08/09/2020 is still at 87%. Unfortunately the [facility] has no financial resources to obtain the oxygen and all of the [employer] related companies are currently out of oxygen concentrators due to Covid patients. Patient does believe that she purchased some insurance which should have started on August 05. She has no record of her purchase but she is working to reach out to her mother to see if they can locate something.
[2020-08-11] MEDS: Nicotine 14 MG PATCH TD SCH (03:54)
[2020-08-11] MEDS: Doxycycline 100 MG CAP PO SCH ×2 (08:31→20:33)
[2020-08-11] MEDS: Enoxaparin Sodium 40 MG/0.4 ML SYRINGE SC SCH (08:31)
[2020-08-11] MEDS: predniSONE 20 MG TAB PO SCH (08:32)
[2020-08-11] MEDS: Mometasone 200 MCG/Formoterol 5 MCG 120 PUFF INHALER INH SCH ×2 (10:16→19:10)
--- NOTE | 2020-08-11 10:40 | PRG ---
DATE OF SERVICE: 08/11/2020 OBJECTIVE: GENERAL: A 59-year-old female. VITAL SIGNS: Temperature 98, pulse 116. Please note, her oxygen saturation was 86% on room air; on 1.5 . She is going to go home on 2 L nasal O2. Blood pressure 165/75. CHEST: No wheezing. No crackles. CARDIAC: Normal S1, S2. No gallops. ABDOMEN: Soft. IMPRESSION: Chronic obstructive pulmonary disease, bilateral pleural effusion. Awaiting cytology. PLAN: O2 at 2 L, sats on room air 86%. Taper steroids over 2 weeks, antibiotics. Follow up with the primary care physician. Job ID: [id number]
[2020-08-11 13:41] VITALS: BMI 16.3
--- NOTE | 2020-08-11 15:20 | PDOC.HOSPP ---
- Subjective Encounter Date: 08/11/20 Subjective: Continues to do well. She reports that when she does get tested off of oxygen she feels fine for a little while but does ultimately get short of breath without the oxygen. - Objective Vital Signs & Weight: Vital Signs (12 hours) Temp Pulse Resp BP BP Pulse Ox 08/11/20 11:34 99.0 F 112 H 22 H 124/59 L 93 L 08/11/20 08:28 93 L 08/11/20 08:20 98.9 F 109 H 16 136/75 86 L 08/11/20 03:16 99.1 F 103 H 18 133/67 100 Weight Admit Weight 95 lb 7 oz Weight 86 lb 6.4 oz I&O: 08/10/20 08/11/20 08/12/20 06:59 06:59 06:59 Intake Total 1320 1600 Output Total 825 800 Balance 495 800 Result Diagrams: 08/08/20 04:02 08/08/20 04:02 Hospitalist ROS - Medication Medications: Active Medications Generic Name Dose Route Start Last Admin Trade Name Freq PRN Reason Stop Dose Admin Albuterol/Ipratropium 3 ml 08/07/20 13:00 08/11/20 10:14 Ipratropium/Albuterol Sulfate 3 Ml Neb NEB 3 ml [id number] JOSELITO Administration Doxycycline Hyclate 100 mg 08/07/20 21:00 08/11/20 08:31 Doxycycline 100 Mg Cap PO 08/17/20 21:01 100 mg BID JOSELITO Administration Enoxaparin Sodium 40 mg 08/07/20 09:00 08/11/20 08:31 Enoxaparin Sodium 40 Mg/0.4 Ml Syringe SC 40 mg 0900 JOSELITO Administration Guaifenesin 200 mg 08/06/20 06:38 08/09/20 21:03 Diabetic Tussin 200 Mg/10 Ml Udcup PO 200 mg Q4H PRN Administration Cough Mometasone Furoate/Formoterol Fumar 2 puff 08/07/20 18:30 08/11/20 10:16 Mometasone 200 Mcg/Formoterol 5 Mcg 120 Puff Inhaler INH 2 puff BID-RT JOSELITO Administration Nicotine 14 mg 08/06/20 04:15 08/11/20 03:54 Nicotine 14 Mg Patch TD Not Given Q24HR JOSELITO Prednisone 20 mg 08/11/20 09:00 08/11/20 08:32 Prednisone 20 Mg Tab PO 20 mg DAILY JOSELITO Administration - Exam General Appearance: NAD, awake alert General - other findings: Very thin. Eye: PERRL Heart: RRR, no murmur, no gallops, no rubs, normal peripheral pulses Respiratory: no wheezes, no ronchi, normal chest expansion, no tachypnea, normal percussion, rales (Mild basilar) Gastrointestinal: soft, non-tender, non-distended, normal bowel sounds, no palpable masses, no hepatomegaly, no splenomegaly, no bruit Extremities: no cyanosis, no clubbing, no edema Skin: normal turgor Neurological: no focal deficits Musculoskeletal: normal tone, normal strength, no muscle wasting Psychiatric: normal affect, normal behavior, A&O x 3 Hosp A/P (1) Acute respiratory failure with hypoxia Code(s): J96.01 - ACUTE RESPIRATORY FAILURE WITH HYPOXIA Status: Acute (2) Pulmonary hypertension Code(s): I27.20 - PULMONARY HYPERTENSION, UNSPECIFIED Status: Acute (3) Pleural effusion Code(s): J90 - PLEURAL EFFUSION, NOT ELSEWHERE CLASSIFIED Status: Acute (4) Tachycardia Code(s): R00.0 - TACHYCARDIA, UNSPECIFIED Status: Acute (5) Protein-calorie malnutrition, moderate Code(s): E44.0 - MODERATE PROTEIN-CALORIE MALNUTRITION Status: Acute (6) Abnormal CT scan, chest Code(s): R93.89 - ABNORMAL FINDINGS ON DX IMAGING OF OTH BODY STRUCTURES Status: Acute (7) Cor pulmonale Code(s): I27.81 - COR PULMONALE (CHRONIC) Status: Acute (8) Interstitial lung disease Code(s): J84.9 - INTERSTITIAL PULMONARY DISEASE, UNSPECIFIED Status: Acute - Plan This patient is a 59-year-old female who has been experiencing progressive shortness of breath for 5 to 6 weeks. She ultimately got to the point where she could no longer function at work and presented to the hospital. She had a CTA of the chest which showed some interstitial prominence of the lungs. It also appears to show a small left pleural effusion. There is no evidence of infiltrate. No evidence of PE. There was some concern for mediastinal fibrosis. Echocardiogram was obtained which reveals evidence of pulmonary hypertension. There are elevated pulmonary artery pressures as well as enlarged right ventricle. EF is 65 to 70%. Patient reports that she has never been a significant smoker. Concerning for the possibility of interstitial lung di sease. Acute hypoxic respiratory failure: She was initially started empirically on antibiotics and these were subsequently discontinued with no evidence of a specific infiltrate. Continue steroids and nebulizers. She was tachycardic and therefore her nebulizers were changed to as needed. Pulmonology consulted on 08/07/2020. Reviewed the case with Dr. Sutton. Diagnosis at this point still remains somewhat elusive but he suspects some diastolic dysfunction given her peripheral edema and pleural effusions. Continuing with steroids, nebulizers and he is resumed empiric antibiotics. She has significant edema in her ankles and now dependent edema in the sacrum which is fairly prominent. Concerning for right heart failure and cor pulmonale from her significant pulmonary hypertension. BNP was slightly elevated. Repeat actually showed some improvement. On 08/09/2020 pulmonology note indicated the patient was stable to go home however in the afternoon it appears that she had a thoracentesis to the relatively small pleural effusion. Chemistries on that would suggest that is transudate. This is consistent with some of her other peripheral edema. UA was evaluated negative for nephrotic syndrome. Interstitial lung disease: Ultimately the patient's work-up appears to be most consistent with some chronic interstitial lung disease. This appears to be chronic. Arranging to have the patient on continuous oxygen and will be able to follow-up with pulmonology as an outpatient to continue monitoring and work-up. Pleural effusion: Relatively small. Thoracentesis performed on 08/09/2020. Transudate of fluid with some lymphocytes. Dr. Sutton indicated he would follow-up on the path. Tachycardia: Initially concern it may be related to her nebulizer treatments. Ordered thyroid studies which were normal. May benefit from a beta-arianna however will need to get her off the nebulizers for a time and see if this settles down. Do not want to initiate beta-blockers at this time given the pulmonary issues. Moderate protein calorie malnutrition: Patient does admit to having some weight loss. She has a generally low BMI. Appeared to have adequate p.o. intake while admitted. Abnormal CT chest: Interesting findings concerning for possible mediastinal fibrosis as well as some pulmonary fibrosis. Echocardiogram obtained with the results as above. Reviewed with CV surgery. No evidence of significant stenosis or severe fibrosis. Disposition: Patient likely can be discharged however, she will require home oxygen as her room air oxygen saturation on 08/09/2020 is still at 87%. Unfortunately the patient has no financial resources to obtain the oxygen and all of the [employer] companies are currently out of oxygen concentrators due to Covid patients. Patient does believe that she purchased some insurance which should have started on August 05. She has no record of her purchase but she is working to reach out to her mother to see if they can locate something.
[2020-08-12] MEDS: Nicotine 14 MG PATCH TD SCH (04:14)
[2020-08-12] MEDS: Mometasone 200 MCG/Formoterol 5 MCG 120 PUFF INHALER INH SCH ×2 (06:29→19:02)
[2020-08-12] MEDS: Enoxaparin Sodium 40 MG/0.4 ML SYRINGE SC SCH (08:09)
[2020-08-12] MEDS: predniSONE 20 MG TAB PO SCH (08:09)
[2020-08-12] MEDS: Doxycycline 100 MG CAP PO SCH ×2 (08:09→20:25)
--- NOTE | 2020-08-12 11:07 | PRG ---
DATE OF SERVICE: 08/12/2020 SUBJECTIVE: Denise Stevenson, this morning, is better. OBJECTIVE: VITAL SIGNS: Sats 95% on 2 L, temperature 98, pulse 95, blood pressure 126/65. CHEST: No wheezing. No crackles. CARDIAC: Normal S1, S2. No gallops. ABDOMEN: No masses. IMPRESSION: Respiratory failure, chronic obstructive pulmonary disease, pleural effusion, still awaiting cytology report. PLAN: She can be discharged home any time. We will follow up later in the office as needed. Job ID: [id number]
--- NOTE | 2020-08-12 17:15 | PDOC.HOSPP ---
- Subjective Encounter Date: 08/12/20 Subjective: Patient reports she feels fine. About the same. - Objective Vital Signs & Weight: Vital Signs (12 hours) Temp Pulse Resp BP BP Pulse Ox 08/12/20 15:34 98.0 F 95 16 116/59 L 96 08/12/20 11:08 98.9 F 118 H 26 H 128/68 93 L 08/12/20 07:58 98.6 F 95 19 126/65 95 Weight Admit Weight 95 lb 7 oz Weight 86 lb 11.2 oz I&O: 08/11/20 08/12/20 08/13/20 06:59 06:59 06:59 Intake Total 1600 2260 Output Total 800 Balance 800 2260 Result Diagrams: 08/08/20 04:02 08/08/20 04:02 Hospitalist ROS - Medication Medications: Active Medications Generic Name Dose Route Start Last Admin Trade Name Freq PRN Reason Stop Dose Admin Doxycycline Hyclate 100 mg 08/07/20 21:00 08/12/20 08:09 Doxycycline 100 Mg Cap PO 08/17/20 21:01 100 mg BID JOSELITO Administration Enoxaparin Sodium 40 mg 08/07/20 09:00 08/12/20 08:09 Enoxaparin Sodium 40 Mg/0.4 Ml Syringe SC 40 mg 0900 JOSELITO Administration Guaifenesin 200 mg 08/06/20 06:38 08/09/20 21:03 Diabetic Tussin 200 Mg/10 Ml Udcup PO 200 mg Q4H PRN Administration Cough Mometasone Furoate/Formoterol Fumar 2 puff 08/07/20 18:30 08/12/20 06:29 Mometasone 200 Mcg/Formoterol 5 Mcg 120 Puff Inhaler INH Not Given BID-RT JOSELITO Nicotine 14 mg 08/06/20 04:15 08/12/20 04:14 Nicotine 14 Mg Patch TD Not Given Q24HR JOSELITO Prednisone 20 mg 08/11/20 09:00 08/12/20 08:09 Prednisone 20 Mg Tab PO 20 mg DAILY JOSELITO Administration - Exam General Appearance: NAD, awake alert Heart: RRR, no murmur, no gallops, no rubs, normal peripheral pulses Respiratory: CTAB, no wheezes, no rales, no ronchi, normal chest expansion, no tachypnea Respiratory - other findings: Slightly diminished Gastrointestinal: soft, non-tender, non-distended, normal bowel sounds, no palpable masses, no hepatomegaly, no splenomegaly, no bruit Extremities: no cyanosis, no clubbing, no edema Skin: normal turgor, no lesions, no rashes Musculoskeletal: normal tone, normal strength, diffuse muscle atrophy Psychiatric: normal affect, normal behavior, A&O x 3 Hosp A/P (1) Acute respiratory failure with hypoxia Code(s): J96.01 - ACUTE RESPIRATORY FAILURE WITH HYPOXIA Status: Acute (2) Pulmonary hypertension Code(s): I27.20 - PULMONARY HYPERTENSION, UNSPECIFIED Status: Acute (3) Pleural effusion Code(s): J90 - PLEURAL EFFUSION, NOT ELSEWHERE CLASSIFIED Status: Acute (4) Tachycardia Code(s): R00.0 - TACHYCARDIA, UNSPECIFIED Status: Acute (5) Protein-calorie malnutrition, moderate Code(s): E44.0 - MODERATE PROTEIN-CALORIE MALNUTRITION Status: Acute (6) Abnormal CT scan, chest Code(s): R93.89 - ABNORMAL FINDINGS ON DX IMAGING OF OTH BODY STRUCTURES Status: Acute (7) Cor pulmonale Code(s): I27.81 - COR PULMONALE (CHRONIC) Status: Acute (8) Interstitial lung disease Code(s): J84.9 - INTERSTITIAL PULMONARY DISEASE, UNSPECIFIED Status: Acute - Plan This patient is a 59-year-old female who has been experiencing progressive shortness of breath for 5 to 6 weeks. She ultimately got to the point where she could no longer function at work and presented to the hospital. She had a CTA of the chest which showed some interstitial prominence of the lungs. It also appears to show a small left pleural effusion. There is no evidence of infiltrate. No evidence of PE. There was some concern for mediastinal fibrosis. Echocardiogram was obtained which reveals evidence of pulmonary hypertension. There are elevated pulmonary artery pressures as well as enlarged right ventricle. EF is 65 to 70%. Patient reports that she has never been a significant smoker. Concerning for the possibility of interstitial lung di sease. Acute hypoxic respiratory failure: She was initially started empirically on antibiotics and these were subsequently discontinued with no evidence of a specific infiltrate. Continue steroids and nebulizers. She was tachycardic and therefore her nebulizers were changed to as needed. Pulmonology consulted on 08/07/2020. Reviewed the case with Dr. Sutton. Diagnosis at this point still remains somewhat elusive but he suspects some diastolic dysfunction given her peripheral edema and pleural effusions. Continuing with steroids, nebulizers and he is resumed empiric antibiotics. She has significant edema in her ankles and now dependent edema in the sacrum which is fairly prominent. Concerning for right heart failure and cor pulmonale from her significant pulmonary hypertension. BNP was slightly elevated. Repeat actually showed some improvement. On 08/09/2020 pulmonology note indicated the patient was stable to go home however in the afternoon it appears that she had a thoracentesis to the relatively small pleural effusion. Chemistries on that would suggest that is transudate. This is consistent with some of her other peripheral edema. UA was evaluated negative for nephrotic syndrome. This appeared to be more of an ongoing chronic issue likely due to some underlying COPD and ILD. Case management was consulted to help assist the patient with home oxygen. After several days ultimately it was determined that the patient did have insurance. However, she had a very high deductible. Case management attempted to work with her to solve the problem but the patient indicated that she would handle it on her own and did not want to talk to case management further about it. Interstitial lung disease: Ultimately the patient's work-up appears to be most consistent with some chronic interstitial lung disease. This appears to be chronic. Arranging to have the patient on continuous oxygen and will be able to follow-up with pulmonology as an outpatient to continue monitoring and work-up. Pleural effusion: Relatively small. Thoracentesis performed on 08/09/2020. Transudate of fluid with some lymphocytes. Dr. Sutton indicated he would follow-up on the path. Tachycardia: Initially concern it may be related to her nebulizer treatments. Ordered thyroid studies which were normal. May benefit from a beta-arianna however will need to get her off the nebulizers for a time and see if this settles down. Do not want to initiate beta-blockers at this time given the pulmonary issues. Moderate protein calorie malnutrition: Patient does admit to having some weight loss. She has a generally low BMI. Appeared to have adequate p.o. intake while admitted. Abnormal CT chest: Interesting findings concerning for possible mediastinal fibrosis as well as some pulmonary fibrosis. Echocardiogram obtained with the results as above. Reviewed with CV surgery. No evidence of significant stenosis or severe fibrosis. Disposition: Patient likely can be discharged however, she will require home oxygen as her room air oxygen saturation on 08/09/2020 is still at 87%. She is stable for discharge at any time however she will need home oxygen. Been some barriers to obtaining home oxygen for her as above. Patient indicates that she will figure it out on her own and find a way to get the oxygen herself.
[2020-08-13] MEDS: Nicotine 14 MG PATCH TD SCH (04:03)
[2020-08-13] MEDS: Mometasone 200 MCG/Formoterol 5 MCG 120 PUFF INHALER INH SCH (05:50)
[2020-08-13] MEDS: predniSONE 20 MG TAB PO SCH (08:16)
[2020-08-13] MEDS: Enoxaparin Sodium 40 MG/0.4 ML SYRINGE SC SCH (08:16)
[2020-08-13] MEDS: Doxycycline 100 MG CAP PO SCH (08:16)
[2020-08-13 15:14] VITALS: BP 121/58; TEMP 98.9
--- NOTE | 2020-08-13 22:58 | DIS ---
DATE OF ADMISSION: 08/06/2020 DATE OF DISCHARGE: 08/13/2020 DISCHARGE DIAGNOSES: 1. Acute hypoxic respiratory failure, multifactorial with oxygen requirement at 2 L/minute by nasal cannula. 2. Interstitial lung disease, suspected chronic. 3. Chronic obstructive pulmonary disease with exacerbation. 4. Moderate protein-calorie malnutrition. CONSULTATIONS: Dr. Sutton with Pulmonology Service. PERTINENT LABORATORY AND X-RAY FINDINGS: BNP 125. TSH 1.43, free T3 1.97. Urine drug screen dated 08/07/2020, negative. Pleural fluid culture dated 08/09/2020 showed no growth at four days. Direct acid-fast bacilli smear from pleural fluid dated 08/09/2020 showed no acid-fast bacilli. AFB culture showed no growth to date, 08/11/2020. CT angiogram of the chest dated 08/05/2020 showed no evidence for pulmonary embolus. Small bilateral pleural fluid, left greater than right. Interstitial lung disease pattern noted. 2D transthoracic echocardiogram dated 08/06/2020 showed ejection fraction of 65% to 70%. Moderate right ventricular enlargement. Moderate tricuspid regurgitation. Moderate to markedly elevated pulmonary artery pressure. No evidence of pericardial effusion. Pleural fluid cytology dated 08/10/2020, negative for malignancy. HOSPITAL COURSE: The patient was initially admitted after presenting with increased shortness of breath with cough. The patient was initially hypoxic on evaluation in the emergency room with 70% O2 saturations with associated tachypnea. The patient underwent chest imaging showing evidence of interstitial lung disease changes and no evidence for pulmonary embolus. The patient initially was placed on oxygen supplementation and given IV normal saline in addition to azithromycin and Rocephin with additional dexamethasone. The patient was also ruled out for COVID-19 with a negative RNA PCR as well as influenza A and B antigen testing 08/05/2020. The patient continued on broad-spectrum IV antibiotic therapy in addition to bronchodilator treatments and dexamethasone. The patient was evaluated by the Pulmonology Service due to the multiple changes noted on CT imaging of the chest. The patient underwent thoracentesis with examination of pleural fluid showing no evidence of infectious process and likely transudative process due to right heart strain due to advanced lung disease. The patient continued to require oxygen supplementation at 2 L with attempts to set up the patient for home oxygen after discharge. Due to difficulty and insurance, the patient was unable to secure oxygen in a timely fashion. The patient does state that she can obtain oxygen with family members assisting with equipment and oxygen tanks at home. The patient decided to pursue this avenue and work on potential rental agreement with [employer] medical equipment supply [employer] after discharge. I have examined the patient at the time of discharge and discussed followup instructions. The patient verbalized understanding and in agreement, ready for discharge on 08/13/2020. DISCHARGE MEDICATIONS: 1. Prednisone 20 mg one tablet p.o. daily x7 days, followed by 10 mg p.o. daily x7 days. 2. Doxycycline 100 mg p.o. b.i.d. x7 days. FOLLOWUP: The patient may follow up with [facility] in [place], [place] to establish care. CONDITION ON DISCHARGE: Fair. ACTIVITY: Ad-tre. DIET: Regular. SPECIAL INSTRUCTIONS: Continue oxygen supplementation at 2 L/minute by nasal cannula. CODE STATUS: Full. DISPOSITION: To home on 08/13/2020. TIME SPENT: Total time preparing and coordinating discharge, 33 minutes. Job ID: [id number]
== END 2020-08-13 16:53 | disposition home or self-care (01) | DRG 189 ==
LOC: 2NO 00:31 → OBSVTOIN 18:37
PROVIDERS: ADMIT Internal Medicine; ATTEND Internal Medicine
PROC: 0W9B3ZZ Drainage of Left Pleural Cavity, Percutaneous Approach (ICD-10-PCS; principal; 2020-08-09)
DX: J96.01 Acute respiratory failure with hypoxia (principal); J84.9 Interstitial pulmonary disease, unspecified; J44.1 Chronic obstructive pulmonary disease with (acute) exacerbation; E44.0 Moderate protein-calorie malnutrition; R64 Cachexia; J90 Pleural effusion, not elsewhere classified; Z68.1 Body mass index [BMI] 19.9 or less, adult; Z20.822 Contact with and (suspected) exposure to COVID-19; I27.20 Pulmonary hypertension, unspecified; I27.81 Cor pulmonale (chronic); Z87.891 Personal history of nicotine dependence
CPT/HCPCS: 36415; 71045; 71046; 80048; 80306; 81003; 81015; 82150; 82945; 83615; 83880; 83986; 84145; 84157; 84443; 84478; 84481; 85025; 85060; 87070; 87116; 87205; 87206; 88112; 88305; 88313; 88341; 88342; 89051; 93306; 94640; 96365; 96367; G0378; J0456; J0696; J1642; J1650; J3490; J7050; J7512; J7620

== ENCOUNTER 2021-01-24 23:31 | Inpatient (IN) | payer BC ==
[2021-01-24] MEDS ORDERED: methylPREDNISolone Sod Succ/PF 125 MG/2 ML VIAL ONE (23:55)
[2021-01-24] MEDS ORDERED: Magnesium 2 GM/50 ML BAG (IN WATER) ONE (23:55)
[2021-01-25] MEDS ORDERED: Ondansetron PF 4 MG/2 ML Vial IVP PRN (01:41)
[2021-01-25] MEDS ORDERED: Ondansetron ODT 4 MG TAB PO PRN (01:41)
[2021-01-25] MEDS ORDERED: Acetaminophen 325 MG TAB PO PRN (01:41)
[2021-01-25 01:51] LABS: Troponin I Less than 0.010 ng/mL (< 0.028)
[2021-01-25 04:52] LABS: #Lymphocytes 0.6 thou/uL (1.20-3.40); #Neutrophils 8.3 thou/uL (1.40-6.50); %Basophils 0.4 % (0.0-1.0); %Eosinophils 0.1 % (0.0-10.0); %Lymphocytes 6.8 % (21.0-51.0); %Monocytes 0.3 % (0.0-10.0); %Neutrophils 92.4 % (42.0-75.0); Hemoglobin 14.7 g/dL (12.0-16.0); Mean Corpuscular HGB CONC 30.9 g/dL (32.0-36.0); Mean Corpuscular Hemoglobin 29.2 pg (27.0-31.0); Mean Corpuscular Volume 94.5 fL (78.0-98.0); Mean Platelet Volume 7.7 fL (7.4-10.4); Platelet Count 220 thou/uL (130-400); RBC Distribution Width 13.8 % (11.5-14.5); Red Blood Cell (RBC) Count 5.04 mill/uL (4.20-5.40)
[2021-01-25 05:27] LABS: Anion Gap 7 mmol/L (10-20); BUN (Urea Nitrogen) 12 mg/dL (9.8-20.1); Calc. Creatinine Clearance 77 mL/min (70-130); Carbon Dioxide 36 mmol/L (22-29); Chloride 105 mmol/L (98-107); Glucose 161 mg/dL (70-105); Sodium 143 mmol/L (136-145)
[2021-01-25 05:30] LABS: Troponin I Less than 0.010 ng/mL (< 0.028)
[2021-01-25] MEDS ORDERED: Azithromycin 500 MG VIAL ONE (07:05)
[2021-01-25] MEDS: Azithromycin 500 MG in Sodium Chloride 0.9% 250 ML 250 ML IVPB SCH (07:43)
[2021-01-25] MEDS ORDERED: methylPREDNISolone Sod Succ 40 MG VIAL ONE (09:14)
[2021-01-25] MEDS ORDERED: Enoxaparin Sodium 40 MG/0.4 ML SYRINGE ONE (09:14)
[2021-01-25] MEDS: methylPREDNISolone Sod Succ 40 MG VIAL IVP SCH (09:20)
[2021-01-25] MEDS: Enoxaparin Sodium 40 MG/0.4 ML SYRINGE SC SCH (09:20)
[2021-01-26] MEDS ORDERED: Azithromycin 500 MG in Sodium Chloride 0.9% 250 ML 250 ML IVPB SCH (03:00)
[2021-01-26] MEDS: Azithromycin 500 MG in Sodium Chloride 0.9% 250 ML 250 ML IVPB SCH (05:33)
[2021-01-26 07:57] VITALS: BMI 14.6
[2021-01-26] MEDS: methylPREDNISolone Sod Succ 40 MG VIAL IVP SCH (09:30)
[2021-01-26] MEDS: Pantoprazole 40 MG VIAL IVP SCH ×2 (09:30→21:25)
[2021-01-26] MEDS: Enoxaparin Sodium 40 MG/0.4 ML SYRINGE SC SCH (09:31)
[2021-01-26 10:53] LABS: Anion Gap 10 mmol/L (10-20); Carbon Dioxide 33 mmol/L (22-29); Chloride 101 mmol/L (98-107); Phosphorus 2.2 mg/dL (2.3-4.7); Potassium 4.1 mmol/L (3.5-5.1); Sodium 140 mmol/L (136-145)
[2021-01-26 11:01] LABS: Albumin 2.9 g/dL (3.5-5.0)
[2021-01-26 11:03] LABS: Glucose 143 mg/dL (70-105)
[2021-01-26 11:07] LABS: BUN/Creatinine Ratio 23.73; Calc. Creatinine Clearance 61 mL/min (70-130)
[2021-01-26 11:08] LABS: BUN (Urea Nitrogen) 14 mg/dL (9.8-20.1)
[2021-01-26 11:09] LABS: Magnesium 1.8 mg/dL (1.6-2.6)
[2021-01-26 11:46] LABS: #Lymphocytes 1.3 thou/uL (1.20-3.40); #Monocytes 0.9 thou/uL (0.11-0.59); #Neutrophils 7.1 thou/uL (1.40-6.50); %Basophils 0.4 % (0.0-1.0); %Eosinophils 0.4 % (0.0-10.0); %Lymphocytes 14.2 % (21.0-51.0); %Monocytes 9.5 % (0.0-10.0); %Neutrophils 75.5 % (42.0-75.0); MDiff Complete? YES; Mean Corpuscular HGB CONC 28.8 g/dL (32.0-36.0); Mean Corpuscular Hemoglobin 27.7 pg (27.0-31.0); Mean Corpuscular Volume 96.3 fL (78.0-98.0); Mean Platelet Volume 8.1 fL (7.4-10.4); Platelet Count 189 thou/uL (130-400); Platelet Morphology Comment Appears Adequate; Polychromasia SLIGHT = 2-3 cells (100X) (0-2/hpf); RBC Distribution Width 13.8 % (11.5-14.5); Red Blood Cell (RBC) Count 5.06 mill/uL (4.20-5.40); White Blood Cell (WBC) Count 9.4 thou/uL (4.8-10.8)
[2021-01-26] MEDS ORDERED: Magnesium 2 GM/50 ML 2 GM in Premix Bag 1 BAG IVPB SCH (13:45)
[2021-01-26] MEDS: PHOS-NAK 1 PKT PACK PO SCH (18:34)
[2021-01-26] MEDS: CEFEPIME HCL IN DEXTROSE 5 % 1 GM in Premix Bag 1 BAG IVPB SCH (21:25)
[2021-01-27] MEDS: Azithromycin 500 MG in Sodium Chloride 0.9% 250 ML 250 ML IVPB SCH (04:42)
[2021-01-27 04:44] LABS: #Basophils 0.1 thou/uL (0.0-0.2); #Eosinphils 0.1 thou/uL (0.0-0.7); #Lymphocytes 1.6 thou/uL (1.20-3.40); #Monocytes 1.2 thou/uL (0.11-0.59); #Neutrophils 7.4 thou/uL (1.40-6.50); %Basophils 0.7 % (0.0-1.0); %Eosinophils 0.7 % (0.0-10.0); %Lymphocytes 15.7 % (21.0-51.0); %Monocytes 11.5 % (0.0-10.0); %Neutrophils 71.4 % (42.0-75.0); Hemoglobin 13.2 g/dL (12.0-16.0); Mean Corpuscular HGB CONC 31.4 g/dL (32.0-36.0); Mean Corpuscular Hemoglobin 29.4 pg (27.0-31.0); Mean Corpuscular Volume 93.6 fL (78.0-98.0); Platelet Count 184 thou/uL (130-400); RBC Distribution Width 13.4 % (11.5-14.5); Red Blood Cell (RBC) Count 4.49 mill/uL (4.20-5.40); White Blood Cell (WBC) Count 10.4 thou/uL (4.8-10.8)
[2021-01-27 05:04] LABS: BUN (Urea Nitrogen) 11 mg/dL (9.8-20.1); BUN/Creatinine Ratio 20.75; Calc. Creatinine Clearance 70 mL/min (70-130); Calcium 7.9 mg/dL (7.8-10.44); Glucose 102 mg/dL (70-105)
[2021-01-27 05:13] LABS: Anion Gap 12 mmol/L (10-20); Carbon Dioxide 35 mmol/L (22-29); Chloride 98 mmol/L (98-107); Potassium 3.9 mmol/L (3.5-5.1); Sodium 141 mmol/L (136-145)
[2021-01-27] MEDS: PHOS-NAK 1 PKT PACK PO SCH ×3 (07:59→16:31)
[2021-01-27] MEDS ORDERED: Potassium Phosphate 15 MMOL in Sodium Chloride 0.9% 250 ML 250 ML IVPB SCH (08:00)
[2021-01-27] MEDS: Pantoprazole 40 MG VIAL IVP SCH ×2 (09:19→20:33)
[2021-01-27] MEDS: methylPREDNISolone Sod Succ 40 MG VIAL IVP SCH (09:19)
[2021-01-27] MEDS: CEFEPIME HCL IN DEXTROSE 5 % 1 GM in Premix Bag 1 BAG IVPB SCH ×2 (09:19→20:33)
[2021-01-27] MEDS: Enoxaparin Sodium 40 MG/0.4 ML SYRINGE SC SCH (09:19)
[2021-01-27] MEDS ORDERED: Lidocaine 1% PF 5 ML VIAL ONE (12:44)
[2021-01-27] MEDS ORDERED: PROPOFOL 200 MG/20 ML VIAL ONE (12:44)
[2021-01-27] MEDS ORDERED: Promethazine HCl 25 MG/ML VIAL IVPB PRN (12:57)
[2021-01-27] MEDS ORDERED: Ondansetron HCl/PF 4 MG/2 ML Vial IVP PRN (12:57)
[2021-01-27] MEDS ORDERED: Promethazine HCl 25 MG/ML VIAL IM PRN (12:57)
[2021-01-28] MEDS: Azithromycin 500 MG in Sodium Chloride 0.9% 250 ML 250 ML IVPB SCH (05:47)
[2021-01-28 07:14] LABS: Chloride 100 mmol/L (98-107); Potassium 3.9 mmol/L (3.5-5.1); Sodium 142 mmol/L (136-145)
[2021-01-28 07:15] LABS: Glucose 153 mg/dL (70-105)
[2021-01-28 07:16] LABS: Carbon Dioxide 37 mmol/L (22-29)
[2021-01-28 07:18] LABS: Calc. Creatinine Clearance 64 mL/min (70-130)
[2021-01-28 07:19] LABS: BUN (Urea Nitrogen) 13 mg/dL (9.8-20.1); BUN/Creatinine Ratio 22.41
[2021-01-28] MEDS: Pantoprazole 40 MG VIAL IVP SCH ×2 (08:52→20:21)
[2021-01-28] MEDS: CEFEPIME HCL IN DEXTROSE 5 % 1 GM in Premix Bag 1 BAG IVPB SCH (08:53)
[2021-01-28] MEDS: PHOS-NAK 1 PKT PACK PO SCH ×3 (08:53→16:17)
[2021-01-28] MEDS: predniSONE 20 MG TAB PO SCH ×2 (08:53→16:17)
[2021-01-28] MEDS: Enoxaparin Sodium 30 MG/0.3 ML SYRINGE SC SCH (08:53)
[2021-01-28 12:33] LABS: Phosphorus 4.1 mg/dL (2.3-4.7)
[2021-01-28 12:34] LABS: Anion Gap 9 mmol/L (10-20)
[2021-01-28] MEDS: Cefdinir 300 MG CAP PO SCH (20:21)
[2021-01-29] MEDS: Azithromycin 500 MG in Sodium Chloride 0.9% 250 ML 250 ML IVPB SCH (05:54)
[2021-01-29] MEDS: PHOS-NAK 1 PKT PACK PO SCH ×3 (07:56→16:12)
[2021-01-29] MEDS: predniSONE 20 MG TAB PO SCH ×2 (07:56→16:12)
[2021-01-29] MEDS: Cefdinir 300 MG CAP PO SCH (07:56)
[2021-01-29] MEDS: Pantoprazole 40 MG VIAL IVP SCH (07:57)
[2021-01-29] MEDS: Enoxaparin Sodium 30 MG/0.3 ML SYRINGE SC SCH (07:57)
[2021-01-29 16:12] VITALS: BP 136/66; TEMP 98.3
[2021-01-30] MEDS ORDERED: Azithromycin 250 MG TAB PO SCH (09:00)
== END 2021-01-29 16:27 | disposition home or self-care (01) | DRG 189 ==
LOC: ERS 23:31 → ERHOLD 01-25 00:40 → 2NO 01-25 14:57
PROVIDERS: ADMIT Student in an Organized Health Care Education/Training Program; ATTEND Internal Medicine
PROC: 0D718ZZ Dilation of Upper Esophagus, Via Natural or Artificial Opening Endoscopic (ICD-10-PCS; principal; 2021-01-27)
DX: J96.01 Acute respiratory failure with hypoxia (principal); J44.1 Chronic obstructive pulmonary disease with (acute) exacerbation; E44.0 Moderate protein-calorie malnutrition; Z68.1 Body mass index [BMI] 19.9 or less, adult; E87.2 Acidosis; R91.8 Other nonspecific abnormal finding of lung field; R13.12 Dysphagia, oropharyngeal phase; M25.78 Osteophyte, vertebrae; E86.0 Dehydration; K21.9 Gastro-esophageal reflux disease without esophagitis; E88.09 Other disorders of plasma-protein metabolism, not elsewhere classified; E83.39 Other disorders of phosphorus metabolism; E83.42 Hypomagnesemia; Z87.891 Personal history of nicotine dependence; Z79.899 Other long term (current) drug therapy; Z79.52 Long term (current) use of systemic steroids
CPT/HCPCS: 36415; 74230; 80048; 80069; 83735; 84484; 85025; 94640; C9113; J0456; J0692; J1650; J2704; J2920; J2930; J3475; J7050; J7512; J7620

== ENCOUNTER 2024-09-02 00:21 | Inpatient (IN) | payer OTHER ==
[2024-09-02] MEDS ORDERED: Ketorolac Tromethamine 30 MG (1 mL) VIAL ONE (02:15)
[2024-09-02 05:01] LABS: ALT (SGPT) 29 U/L (Less than 34); AST (SGOT) 32 U/L (11-34); Albumin 3.6 g/dL (3.1-4.5); Alkaline Phosphatase 111 U/L (40-110); Anion Gap 17 mmol/L (10-20); BUN (Urea Nitrogen) 18 mg/dL (9.8-20.1); Bilirubin, Total 0.2 mg/dL (0.3-1.2); Calc. Creatinine Clearance 0 mL/min (70-130); Calcium 8.6 mg/dL (7.8-10.44); Carbon Dioxide 26 mmol/L (23-31); Chloride 104 mmol/L (98-107); Estimated GFR 105; Globulin 3.7 g/dL (2.4-3.5); Glucose 193 mg/dL (80-115); Potassium 4.5 mmol/L (3.5-5.1); Protein, Total 7.3 g/dL (5.8-8.1); Sodium 142 mmol/L (136-145)
[2024-09-02 05:03] LABS: Free T4 (Free Thyroxine) 0.98 ng/dL (0.70-1.48); Thyroid Stimulating Hormone 0.4323 uIU/mL (0.35-4.94)
[2024-09-02 07:01] LABS: Troponin I 0.035 ng/mL (< 0.028)
[2024-09-02] MEDS ORDERED: Aspirin Chewable 81 MG TAB ONE (07:54)
[2024-09-02 08:38] LABS: Bilirubin Negative (Negative); Blood, Urine Negative (Negative); CAUTI Indications for Culture Dysuria,urgency,freq; Clarity Clear (Clear); Glucose, Urine (Dipstick) Normal (Negative); Ketone, Urine 10 mg/dL (Negative); Leukocyte 75 Leu/uL (Negative); Nitrite Negative (Negative); Protein, Urine (Dipstick) Negative (Neg-Trace); Specific Gravity, Urine 1.032 (1.002-1.036); Squamous Epithelial 0-3 HPF (0-3); Urobilinogen Normal mg/dL (Less than 2); pH, Urine 5.5 (5.0-9.0)
[2024-09-02 08:50] LABS: Bacteria/HPF 1+ HPF (None Seen)
[2024-09-02 08:51] LABS: Urine Culture Reflex Yes Yes
[2024-09-02 08:56] LABS: Troponin I 0.012 ng/mL (< 0.028)
[2024-09-02] MEDS ORDERED: Calcium Carbonate 500 MG ChewTAB PO PRN (09:27)
[2024-09-02] MEDS ORDERED: Albuterol 2.5 MG (3 mL) NEB NEB PRN (09:27)
[2024-09-02] MEDS ORDERED: Senokot S 8.6-50 MG TAB PO PRN (09:27)
[2024-09-02] MEDS ORDERED: Bisacodyl 5 MG TAB PO PRN (09:27)
[2024-09-02] MEDS: cefTRIAXone\\ROCEPHIN 1 GM in Sodium Chloride 0.9% 100 ML IVPB SCH (11:50)
[2024-09-02] MEDS ORDERED: Sodium Chloride 0.9% 100 ML ONE (11:53)
[2024-09-02] MEDS ORDERED: cefTRIAXone (ROCEPHIN) 1 GM VIAL ONE (11:53)
[2024-09-02] MEDS ORDERED: methylPREDNISolone Sod Succ 40 MG VIAL ONE (11:53)
[2024-09-02] MEDS ORDERED: Azithromycin 500 MG VIAL ONE (11:53)
[2024-09-02] MEDS ORDERED: Sodium Chloride 0.9% 250 ML 250 ML ONE (11:54)
[2024-09-02] MEDS: methylPREDNISolone Sod Succ 40 MG VIAL IVP SCH (12:01)
[2024-09-02] MEDS: Azithromycin 500 MG in Sodium Chloride 0.9% 250 ML 250 ML IVPB SCH (12:19)
[2024-09-02] MEDS ORDERED: Ipratropium Bromide 2.5 ml Neb ONE (14:17)
[2024-09-02] MEDS: Ipratropium Bromide 2.5 ml Neb NEB SCH (14:32)
[2024-09-02 15:36] VITALS: BMI 24.1
[2024-09-02 18:34] LABS: Troponin I 0.019 ng/mL (< 0.028)
[2024-09-03 05:53] LABS: #Basophils Less than 0.03 10x3/uL (0.0-0.2); #Eosinophils Less than 0.03 10x3/uL (0.0-0.7); %Basophils 0.1 % (0.0-1.0); %Monocytes 3.4 % (0.0-10.0); %Neutrophils 90.2 % (42.0-75.0); Hematocrit 39.4 % (36.0-47.0); Mean Corpuscular HGB CONC 30.5 g/dL (32.0-36.0); Mean Corpuscular Hemoglobin 27.5 pg (27.0-31.0); Mean Corpuscular Volume 90.2 fL (78.0-98.0); Platelet Count 268 10x3/uL (130-400); Red Blood Cell (RBC) Count 4.37 mill/uL (4.20-5.40)
[2024-09-03 06:25] LABS: Anion Gap 13 mmol/L (10-20); BUN (Urea Nitrogen) 10 mg/dL (9.8-20.1); Calc. Creatinine Clearance 107 mL/min (70-130); Calcium 8.9 mg/dL (7.8-10.44); Carbon Dioxide 32 mmol/L (23-31); Chloride 102 mmol/L (98-107); Estimated GFR 106; Glucose 168 mg/dL (80-115); Potassium 4.2 mmol/L (3.5-5.1); Sodium 143 mmol/L (136-145)
[2024-09-03] MEDS: Pantoprazole 40 MG DR.TAB PO SCH (08:43)
[2024-09-04 04:35] LABS: #Basophils Less than 0.03 10x3/uL (0.0-0.2); #Eosinophils Less than 0.03 10x3/uL (0.0-0.7); %Basophils 0.1 % (0.0-1.0); %Lymphocytes 4.8 % (21.0-51.0); %Monocytes 2.8 % (0.0-10.0); %Neutrophils 91.5 % (42.0-75.0); Hematocrit 38.2 % (36.0-47.0); Hemoglobin 11.5 g/dL (12.0-16.0); Mean Corpuscular HGB CONC 30.1 g/dL (32.0-36.0); Mean Corpuscular Hemoglobin 27.4 pg (27.0-31.0); Mean Platelet Volume 9.7 fL (7.4-10.4); Platelet Count 266 10x3/uL (130-400); RBC Distribution Width 13.8 % (11.5-14.5)
[2024-09-04 05:02] LABS: Anion Gap 10 mmol/L (10-20); BUN (Urea Nitrogen) 16 mg/dL (9.8-20.1); Calc. Creatinine Clearance 114 mL/min (70-130); Calcium 8.8 mg/dL (7.8-10.44); Carbon Dioxide 35 mmol/L (23-31); Chloride 102 mmol/L (98-107); Estimated GFR 108; Glucose 143 mg/dL (80-115); Potassium 4.3 mmol/L (3.5-5.1); Sodium 143 mmol/L (136-145)
[2024-09-04] MEDS: Acetaminophen 325 MG TAB PO PRN (09:43)
[2024-09-04 11:41] VITALS: BP 196/91; TEMP 98.3
== END 2024-09-04 15:40 | disposition home or self-care (01) | DRG 190 ==
LOC: ERS 00:21 → ERHOLD 07:49 → OBS 15:20 → OBSVTOIN 09-03 15:15
PROVIDERS: ADMIT Internal Medicine; ATTEND Internal Medicine
DX: J44.1 Chronic obstructive pulmonary disease with (acute) exacerbation (principal); J96.01 Acute respiratory failure with hypoxia; N39.0 Urinary tract infection, site not specified; K21.9 Gastro-esophageal reflux disease without esophagitis; R91.1 Solitary pulmonary nodule; Z99.81 Dependence on supplemental oxygen; Z87.891 Personal history of nicotine dependence
CPT/HCPCS: 36415; 80048; 80053; 81001; 84439; 84443; 84481; 84484; 85025; 87086; 93005; 94640; 96360; J0456; J0696; J1885; J2919; J7050; J7644

== ENCOUNTER 2025-03-03 13:07 | Observation (INO) | payer OTHER, MEDICAID ==
[2025-03-03 13:44] VITALS: BMI 24.1
[2025-03-03] MEDS: cefTRIAXone\\ROCEPHIN 2 GM in Sodium Chloride 0.9% 100 ML IVPB SCH (20:11)
[2025-03-04] MEDS: Acetaminophen 325 MG TAB PO PRN (04:46)
[2025-03-04 05:36] LABS: #Basophils 0.03 10x3/uL (0.0-0.2); #Eosinophils 0.12 10x3/uL (0.0-0.7); #Monocytes 0.71 10x3/uL (0.11-0.59); #Neutrophils 4.65 10x3/uL (1.40-6.50); %Basophils 0.4 % (0.0-1.0); %Eosinophils 1.7 % (0.0-10.0); %Lymphocytes 22.3 % (21.0-51.0); %Monocytes 10.0 % (0.0-10.0); %Neutrophils 65.3 % (42.0-75.0); Hematocrit 32.4 % (36.0-47.0); Hemoglobin 9.9 g/dL (12.0-16.0); Mean Corpuscular Hemoglobin 28.2 pg (27.0-31.0); Mean Corpuscular Volume 92.3 fL (78.0-98.0); Platelet Count 219 10x3/uL (130-400); Red Blood Cell (RBC) Count 3.51 mill/uL (4.20-5.40); White Blood Cell (WBC) Count 7.12 10x3/uL (4.8-10.8)
[2025-03-04 06:02] LABS: Anion Gap 11 mmol/L (10-20); BUN (Urea Nitrogen) 10 mg/dL (9.8-20.1); Calc. Creatinine Clearance 108 mL/min (70-130); Calcium 8.4 mg/dL (7.8-10.44); Carbon Dioxide 34 mmol/L (23-31); Chloride 101 mmol/L (98-107); Glucose 84 mg/dL (80-115); Potassium 3.9 mmol/L (3.5-5.1); Sodium 142 mmol/L (136-145)
[2025-03-04] MEDS: Losartan 25 MG TAB PO SCH (08:03)
[2025-03-04] MEDS: Enoxaparin 40 MG (0.4 mL) SYRINGE SC SCH (08:03)
[2025-03-04] MEDS: predniSONE 20 MG TAB PO SCH (08:03)
[2025-03-04 08:14] VITALS: TEMP 97.7
[2025-03-04] MEDS: Metoprolol Succinate XL 25 MG ER.TAB PO SCH (11:40)
[2025-03-04 14:23] VITALS: BP 164/74
[2025-03-04] MEDS ORDERED: Azithromycin 250 MG TAB PO SCH (19:00)
== END 2025-03-04 18:19 | disposition home or self-care (01) ==
LOC: INTOOBSV 13:07 → PCU 13:07 → OBS 17:28
PROVIDERS: ADMIT Student in an Organized Health Care Education/Training Program; ATTEND Internal Medicine
PROC: B24BZZZ Ultrasonography of Heart with Aorta (ICD-10-PCS; principal; 2025-03-03)
DX: J96.21 Acute and chronic respiratory failure with hypoxia (principal); J96.12 Chronic respiratory failure with hypercapnia; J44.1 Chronic obstructive pulmonary disease with (acute) exacerbation; I26.99 Other pulmonary embolism without acute cor pulmonale; I10 Essential (primary) hypertension; Z79.01 Long term (current) use of anticoagulants; Z79.899 Other long term (current) drug therapy
CPT/HCPCS: 80048; 85025; 93005; 93306; 93970; 96365; 96372; G0378 ×2; J0696; J1650; 36415; 93010; J7512